=== PATIENT | female | born 1950 | race Caucasian/White ===

== ENCOUNTER 2016-11-05 17:25 | Emergency (ER) | payer OTHER, BC ==
[~2016-11-05] VITALS: Ht 157.5 cm; Wt 80.3 kg
[~2016-11-05 17:25] MED LIST: CARBIDOPA25 MG; COZAAR 25 MG TA25 MG PO; DEPAKOTE ER500 MG PO; FLEXERIL PO; KEFLEX500 MG PO; LIORESAL 10 MG10 MG PO; NAPROSYN500 MG PO; NEURONTIN 300300 M1 PO; PROPRANOLOL 1010 MG PO; SIMVASTATIN40 MG PO; TYLENOL325 MG PO
== END 2016-11-05 20:10 | disposition home or self-care (01) ==
LOC: ER 17:25
DX: S51.012A Laceration without foreign body of left elbow, initial encounter (principal); K58.9 Irritable bowel syndrome, unspecified; F32.9 Major depressive disorder, single episode, unspecified; I10 Essential (primary) hypertension; E11.9 Type 2 diabetes mellitus without complications; E78.00 Pure hypercholesterolemia, unspecified; Z86.2 Personal history of diseases of the blood and blood-forming organs and certain disorders involving the immune mechanism; Z90.710 Acquired absence of both cervix and uterus; Z90.89 Acquired absence of other organs; Z88.5 Allergy status to narcotic agent; Z88.6 Allergy status to analgesic agent; W18.30XA Fall on same level, unspecified, initial encounter; Y93.89 Activity, other specified; Y92.89 Other specified places as the place of occurrence of the external cause; Y99.9 Unspecified external cause status